=== PATIENT | male | born 1980 | race Caucasian/White ===

== ENCOUNTER 2017-01-23 10:01 | Emergency (ER) | payer SELFPAY ==
[~2017-01-23] VITALS: Ht 180.3 cm; Wt 68.0 kg
[2017-01-23] MEDS ORDERED: DOXYCYC MONO100 M1 PO (10:23)
[2017-01-23 10:32] VITALS: BP 126/79
== END 2017-01-23 10:32 | disposition home or self-care (01) | DRG 603 ==
LOC: ED 10:01
DX: L03.114 Cellulitis of left upper limb (principal); F17.210 Nicotine dependence, cigarettes, uncomplicated; T63.481A Toxic effect of venom of other arthropod, accidental (unintentional), initial encounter